=== PATIENT | female | born 1980 | race Caucasian/White ===

== ENCOUNTER 2022-05-12 13:11 | Emergency (ER) | payer BC, SELFPAY ==
[2022-05-12 13:13] VITALS: BP 168/106; PULSE 100; RESP 14; TEMP 36; O2SAT 100; BMI 35.8
--- NOTE | 2022-05-12 13:31 | EDS_ITS ---
HPI <SANDRA Burroughs - Last Filed: 05/12/22 16:49> History of Present Illness Chief Complaint: Allergic Reaction Narrative Narrative: Patient presents today with angioedema to her upper lip that she first noticed at 9 AM this morning that gradually worsened. She states the only medication she takes is lisinopril and she has been on it for 3 years, however, her dose just got increased from 10mg to 20mg daily at the beginning of April. She last took this medication at 7 AM this morning. 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 She states she has not had exposure to either of these recently. Patient denies difficulty swallowing, difficulty breathing, swelling to her tongue or swelling inside her mouth, rash, other systemic allergic symptoms, abdominal pain, nausea, vomiting, or diarrhea. [facility]LY [facility], [facility] <SANDRA Burroughs - Last Filed: 05/12/22 16:49> [facility] Medical History (Updated 05/12/22 @ 16:[address] Bo Bentley MD) HTN (hypertension) Home Medications hydrochlorothiazide 12.5 mg tablet 12.5 mg PO DAILY 1 month #30 tabs 05/12/22 [Rx Last Taken Unknown] lisinopril 20 mg-hydrochlorothiazide 12.5 mg tablet tab 05/12/22 [History Last Taken Unknown] metoprolol succinate 25 mg tablet,extended release 24 hr 25 mg PO DAILY #30 tabs 05/12/22 [Rx Last Taken Unknown] Allergy/AdvReac Type Severity Reaction Status Date / Time bee venom protein (honey bee) Allergy Anaphylaxis Verified 05/12/22 13:13 [bees] lisinopril Allergy Other Verified 05/12/22 13:13 nut - unspecified [nuts] Allergy Anaphylaxis Verified 05/12/22 13:13 Social History Smoking Status: Never smoker ROS <SANDRA Burroughs - Last Filed: 05/12/22 16:49> ROS ED Constitutional Constitutional ED: Denies chills, fever(s) or sweats Eyes Eyes: Denies blurry vision or change in vision ENT ENT ED: Denies rhinorrhea or sore throat Cardiovascular Cardiovascular: Denies chest pain, palpitations or racing heartbeat Respiratory/Chest Respiratory/Chest: Denies cough, dyspnea, dyspnea on exertion, tachypnea or wheezing Gastrointestinal Gastrointestinal: Denies abdominal pain, nausea or vomiting Genitourinary Genitourinary ED: Denies dysuria, hematuria or urinary frequency Musculoskeletal Musculoskeletal: Denies back pain or neck pain Integumentary Denies abscess, Abrasions or rash Neurologic Neurologic: Denies headache(s), paresthesias or weakness Psychiatric Psychiatric: Denies anxiety, depression or suicidal ideation Allergic/Immunologic Allergic/Immunologic ED: Reports other Details: Lip swelling ; Denies mouth swelling, tongue swelling or urticaria EXAM <SANDRA Burroughs - Last Filed: 05/12/22 16:49> Physical Exam Const Vital Signs: 05/12/22 13:13 05/12/22 14:22 05/12/22 15:12 Temperature 96.8 F L Temperature Source Temporal Pulse Rate 100 84 88 Respiratory Rate 14 16 17 Blood Pressure 168/106 H 138/72 H Blood Pressure Mean 126 94 Pulse Ox 100 98 96 Oxygen Delivery Method Room Air Room Air 05/12/22 15:57 Temperature Temperature Source Pulse Rate 72 Respiratory Rate 17 Blood Pressure 138/72 H Blood Pressure Mean Pulse Ox 98 Oxygen Delivery Method Positive well nourished and well developed General Appearance ED: well developed and NAD HEENT Reports moist mucous membranes HEENT Narrative: Patient has angioedema to her upper lip without involvement of the tongue, uvula, or posterior pharynx. Patient has no anterior neck swelling. Patient is able to breathe without difficulty. Eyes PERRL and EOMs intact bilaterally Neck no lymphadenopathy and supple General: Negative for tenderness Chest Wall inspection of chest normal Resp normal respiratory effort and clear to auscultation bilaterally Cardio regular rate, regular rhythm and no murmurs GI non-tender, non-distended and no masses Palpation: soft Extremity normal to inspection Neuro oriented x3, CN's II-XII intact bilaterally and no sensory deficits noted Sensorium / Orientation: alert Motor Exam: strength 5/5 throughout Psych mental status grossly normal Skin no rashes or lesions noted and no wounds <Dr. Bo Bentley MD - Last Filed: 05/12/22 16:34> Physical Exam Const Vital Signs: 05/12/22 13:13 05/12/22 14:22 05/12/22 15:12 Temperature 96.8 F L Temperature Source Temporal Pulse Rate 100 84 88 Respiratory Rate 14 16 17 Blood Pressure 168/106 H 138/72 H Blood Pressure Mean 126 94 Pulse Ox 100 98 96 Oxygen Delivery Method Room Air Room Air 05/12/22 15:57 Temperature Temperature Source Pulse Rate 72 Respiratory Rate 17 Blood Pressure 138/72 H Blood Pressure Mean Pulse Ox 98 Oxygen Delivery Method [facility] <SANDRA Burroughs - Last Filed: 05/12/22 16:49> [facility] Narrative Medical decision making narrative: I have personally performed a face to face assessment of the patient and have reviewed the LINDA Note. I performed a substantive portion of the visit including all aspects of the following. My dominique findings include: History is remarkable for swelling of her upper lip. She is on an ALEX inhibitor. She denies swelling of her tongue. She denies drooling. Denies change in voice. She denies difficulty breathing. She does report allergies to food and bees. She denies rash or itching. She denies shortness of breath or wheezing. She denies nausea, vomiting diarrhea. She denies orthostatic symptoms. Exam is remarkable for angioedema of the upper lip. There is no swelling of the tongue, uvula or posterior pharynx. Trachea is midline. There is no inspiratory stridor. Heart is regular. There is no murmur, gallop or rub. Rate is normal. Lungs are clear to auscultation with good movement air bilater ally. There are no dermatologic lesions noted. Medical Decision Making patient has angioedema due to ALEX inhibitor. Will contact physician to determine what antihypertensive med she has been on the past. Patient's been told she cannot take ALEX inhibitor's and since there is a cross reaction with ARB's will not be able to take any ARB's. Other additions or changes: Patient was observed for some time. She had no progression of her angioedema. There was no involvement of the tongue, uvula or neck. She was discharged to home. She was instructed to discontinue the lisinopril. She was prescribed metoprolol and hydrochlorothiazide. Patient was given methylprednisolone as well as Benadryl. I have talked to patient's PCP Dr. Parker who suggests switching the ALEX inhibitor to metoprolol and continuing the hydrochlorothiazide. I have written her a prescription for these medications. Patient has been observed here in the ED and her symptoms did not progress. She will be discharged home in stable condition and patient is comfortable with plan. She has been given return instructions. I have encouraged her to discontinue the lisinopril. <Dr. Bo Bentley MD - Last Filed: 05/12/22 16:34> MDM MDM Narrative Medical decision making narrative: I have personally performed a face to face assessment of the patient and have reviewed the LINDA Note. I performed a substantive portion of the visit including all aspects of the following. My dominique findings include: History is remarkable for swelling of her upper lip. She is on an ALEX inhibitor. She denies swelling of her tongue. She denies drooling. Denies change in voice. She denies difficulty breathing. She does report allergies to food and bees. She denies rash or itching. She denies shortness of breath or wheezing. She denies nausea, vomiting diarrhea. She denies orthostatic symptoms. Exam is remarkable for angioedema of the upper lip. There is no swelling of the tongue, uvula or posterior pharynx. Trachea is midline. There is no inspiratory stridor. Heart is regular. There is no murmur, gallop or rub. Rate is normal. Lungs are clear to auscultation with good movement air bilaterally. There are no dermatologic lesions noted. Medical Decision Making patient has angioedema due to ALEX inhibitor. Will contact physician to determine what antihypertensive med she has been on the past. Patient's been told she cannot take ALEX inhibitor's and since there is a cross reaction with ARB's will not be able to take any ARB's. Other additions or changes: Patient was observed for some time. She had no progression of her angioedema. There was no involvement of the tongue, uvula or neck. She was discharged to home. She was instructed to discontinue the lisinopril. She was prescribed metoprolol and hydrochlorothiazide. 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 Primary Care Provider: Octavio Parker Referrals: Octavio Parker MD [Primary Care Provider] - 3-5 Days Activity Restrictions/Additional Instructions: Please follow-up with PCP. Please return if symptoms worsen. Please do not take your lisinopril. Start new blood pressure medications. Disposition Disposition: Home, Self Care Discharge Date/Time: 05/12/22 15:58
[2022-05-12] MEDS: DiphenhydrAMINE 50 MG/ML Syringe IV (13:33)
[2022-05-12] MEDS: MethylPREDNISolone 125 MG/2 ML Vial IV (13:33)
[2022-05-12 14:22] VITALS: BP 138/72; PULSE 84; RESP 16; O2SAT 98
[2022-05-12 15:12] VITALS: PULSE 88; RESP 17; O2SAT 96
[2022-05-12 15:57] VITALS: BP 138/72; PULSE 72; RESP 17; O2SAT 98
== END 2022-05-12 15:58 | disposition home or self-care (01) ==
PROVIDERS: Emergency Provider Emergency Medicine; PCP Family Medicine; Visit Provider Emergency Medicine
DX: T78.3XXA Angioneurotic edema, initial encounter (principal); T46.4X5A Adverse effect of angiotensin-converting-enzyme inhibitors, initial encounter; I10 Essential (primary) hypertension
CPT/HCPCS: 96374; 96375; 99282; A4216; J3490